=== PATIENT | female | born 1995 | race Caucasian/White ===

== ENCOUNTER 2020-05-15 20:12 | Emergency (ER) | payer OTHER ==
[~2020-05-15] VITALS: Ht 152.4 cm; Wt 56.7 kg
[2020-05-15 20:30] VITALS: BP 126/84
[2020-05-15] MEDS ORDERED: Acetaminophen 500mg (ES) tab ORAL ONE (21:00)
--- NOTE | 2020-05-15 21:40 | Diagnostic Imaging Report ---
EXAM: XR Soft Tissue Neck CLINICAL HISTORY: PAIN TECHNIQUE: Frontal and lateral views of the soft tissues of the neck. COMPARISON: None. FINDINGS: Airway: The airways patent. Bones/joints: There is straightening and reversal of the curvature of the cervical spine possibly on the basis of muscle spasm. Soft tissues: Prevertebral soft tissues are unremarkable. Normal epiglottis. Other findings: Lung apices are unremarkable. IMPRESSION: 1. The airway is normal in appearance. 2. Prevertebral soft tissues are unremarkable. 3. Straightening and reversal of the curvature of the cervical spine possibly on the basis of muscle spasm. Clinical correlation is necessary.
--- NOTE | 2020-05-15 21:53 | Emergency Room Report ---
History of Present Illness General Chief Complaint: Neck Pain Source: Patient Present Illness HPI 24-year-old female with no prior medical history presents with chief complaint of left neck pain while at work. 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 She states she was standing up from a bent over position and yawned and subsequently felt pain to the left side of her neck. Denies midline pain, trauma, chiropractor adjustment, radicular symptoms, weakness, vision changes, slurred speech, sudden onset headache, chest pain, shortness of breath, ataxia, focal weakness or other symptoms. She states she has been in her normal state of health. Denies fever, chills, cough , nausea, vomiting, diarrhea The patient's symptoms were gradual onset, severity was moderate, duration since 1 day. Quality: Soreness Past medical history: seasonal allergies Past surgical history: Denies Smoking: Denies Alcohol use: occasional Drug use: intermittent marijuana Review of systems: CONST: No fevers or chills, No night sweats PULMONARY: No productive cough, No shortness of breath CARDIAC: No chest pain, No palpitations GI: No vomiting, No diarrhea , No melena_or_BRBPR : No dysuria, No hematuria, No discharge NEURO: No new_focal_weakness_or_numbness, No confusion, No vision changes MSK: L muscle neck pain 14 point Review of Systems is otherwise negative except per HPI Physical Exam: GENERAL: Awake_alert_ nontoxic, no acute distress Spo2 97% on RA -normal EYES: Extraocular muscles are intact. Conjunctivae clear. Lids without swelling ENT: External nose and ear normal_in_appearance. Oropharynx clear. Head_ atraumatic, Moist_oral_mucosa NECK: No JVD. No meningismus. No thyromegaly. Supple. Trachea midline. No nuchal rigidity. RESP: Normal respiratory effort. Symmetric rise. No stridor. Clear_to_ auscultation_No_rales_No_wheezes CARDIAC: Regular rate and regular rhythm on_auscultation No_significant pedal edema. ABDOMEN: Soft. Nondistended. Nontender_No_rebound_or_guarding. MSK: Normal muscle tone, without rigidity. Extremities without asymmetric deformity or swelling. L paraspinal cervical muscle hypertonicity. no midline c/t/l spine deformity or step off SKIN: Warm and dry. No visible cyanosis or pallor NEUROLOGIC: Alert, oriented x3. Motor_and_sensation_grossly_intact. No truncal ataxia. Gait_normal Normal finger to nose no pronator drift normal rapid alternating movement walks with smooth collins, smooth turns. Psych: Normal mood and affect, normal judgment and insight - COORDINATION OF CARE Case was discussed with: Patient Any imaging that were ordered were interpreted as part of the medical decision making: Medical Decision Making/Plan: Differential diagnosis includes musculoskeletal pain, fracture, dislocation, doubt neurologic/central cause, doubt meningitis Patient is a well-appearing 24-year-old female that complains with left paraspinal neck pain while lifting her head up at work. On examination she is afebrile. She has no focal neurologic deficits or abnormal cerebellar signs. She has no truncal ataxia or nystagmus noted. Pupils were equal and reactive to light. There is no tenderness to palpation elicited over the left mu-ism. No slurred speech Palpation of the spine was unremarkable. She has no meningismus or step-offs of the cervical, thoracic, or lumbar spine. No petechial rash to indicate meningitis or encephalitis. Palpation of the left paraspinal cervical muscles demonstrate hypertonicity. There is, however, no restricted range of motion and she has full range of motion in flexion, extension and sidebending of the C-spine X-rays of the soft tissue neck show straightening of the curvature of the cervical spine, possibly indicating cervical muscle spasm. No fracture or dislocation is noted. ED intervention included Tylenol On repeat evaluation, patient is asymptomatic Pertinent results reviewed with the patient. I educated the patient on the current treatment plan including the risks, benefits, and alternatives. I also discussed the extent and limitations of the current evaluation. The patient expressed understanding and agreement with plan. I recommended PMD follow-up within 1-2 days. Also advised that the patient return to the Emergency Department as soon as possible if they experience any new, persistent, or worsening symptoms. I advised patient to avoid heavy lifting, heavy labor, or driving/operating heavy machinery while taking Robaxin. 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 Mediastinum normal. No infiltrate. Impression: NAD The X-ray(s) were independently viewed and interpreted contemporaneously Electronically signed by Carol roca DO SOFT TISSUE NECK Views: 2 view(s) No fracture. Normal alignment. Soft tissues normal. Joint spaces normal. Indication: Pain Impression: no acute disease, straightening and reversal of the curvature of the cervical spine possibly on the basis of muscle spasm muscle spasm The X-ray(s) were independently viewed and interpreted contemporaneously - Electronically signed by Carol roca DO Reevaluation Time: 21:53 Last Vital Signs Date Time Temp Pulse Resp B/P (MAP) Pulse Ox O2 Delivery O2 Flow Rate FiO2 05/15/20 21:29 98.6 05/15/20 20:30 79 16 126/84 97 Room Air Status: improved Disposition: HOME, SELF-CARE Admit Decision Time: 21:53 Condition: Stable Scripts Acetaminophen* (TYLENOL EXTRA STRENGTH*) 500 Mg Tablet 500 MG ORAL Q8H PRN for Prn Headache/Temp > 101, #30 TAB 0 Refills Prov: Carol Sheikh D.O. 05/15/20 Methocarbamol* (ROBAXIN-750*) 750 Mg Tablet 750 MG PO TID, #21 TAB 0 Refills Prov: Carol Sheikh D.O. 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 Avoid heavy lifting. Do not drive or operate heavy machinery while taking Robaxin as it is sedating Follow-up with your doctor sooner if your condition requires a more timely clinical reevaluation. Return to the emergency department immediately if you feel that your condition is worsening or if you have any new or concerning symptoms. Review your discharge instructions and take any prescriptions given as instructed. Carol Sheikh D.O. May 15, 2020 21:53
[2020-05-15] MEDS ORDERED: TYLENOL EXTRA500 MG ORAL (21:54)
[2020-05-15] MEDS ORDERED: ROBAXIN-750750 MG PO (21:54)
[2020-05-16 00:03] VITALS: BP 124/80
--- NOTE | 2020-05-16 15:32 | Diagnostic Imaging Report ---
Indication: Chest pain Technique: One view of the chest Comparison: none Findings: Lungs and pleural spaces are clear. Heart size is normal. Impression: No acute process
== END 2020-05-15 22:00 | disposition home or self-care (01) ==
LOC: EMR 21:26
DX: M54.2 Cervicalgia (principal); M62.838 Other muscle spasm; R07.9 Chest pain, unspecified
CPT/HCPCS: 70360; 71045; 99284